=== PATIENT | female | born 1950 | race Hispanic/Latino ===

== ENCOUNTER 2020-09-03 01:14 | Emergency (ER) | payer MEDICARE ==
--- NOTE | 2020-09-03 01:27 | Emergency Department Report ---
ED Fall HPI - General Stated Complaint: SLIP AND FALL RT ARM PAIN Time Seen by Provider: 09/03/20 01:14 Source: patient, EMS Mode of arrival: Stretcher Limitations: Physical Limitation - History of Present Illness Initial Comments: Patient is a 70-year-old female that presents emergency room with complaints of right upper extremity pain after a fall. Patient states she was at [employer] when she slipped. Patient states that the pain is a 10 out of 10. Patient denies loss of consciousness. Patient denies hitting her head. Patient states the pain is better with rest and worse with movement. Patient was brought in by EMS. EMS placed the patient in a right upper extremity sling. Patient denies any other complaint except for nausea. Patient denies chest pain. Patient denies shortness of breath. Patient denies any other injury. Patient denies recent travel. Patient denies recent international travel. Patient denies exposure to the novel coronavirus. Patient denies sick contacts. Patient denies fever and chills. Patient denies cough. Patient denies diarrhea. Patient denies coming in contact with anybody with symptoms of the novel coronavirus. Complaint: fall -: Sudden Fall From: standing When Fall Occurred: [address] Fall Occurred: other Loss of Consciousness: none Prolonged Down Time?: no Symptoms Prior to Fall: none Location: other Location - Extremities: Right: Shoulder, Arm, Elbow, Forearm, Hand Severity: severe Severity scale (0 -10): 10 Quality: sharp Context: tripped/slipped Associated Symptoms: denies: headache, neck pain, numbness, weakness, chest paint, shortness of breath, abdominal pain, hematuria, unable to walk, lightheaded, vertigo, confusion - Related Data Allergies Allergy/AdvReac Type Severity Reaction Status Date / Time ibuprofen [From Motrin] Allergy Unknown Verified 09/03/20 01:19 ED Review of Systems ROS: Stated complaint: SLIP AND FALL RT ARM PAIN Other details as noted in HPI Constitutional: denies: chills, fever Eyes: denies: eye pain, eye discharge, vision change ENT: denies: ear pain, throat pain Respiratory: denies: cough, shortness of breath, wheezing Cardiovascular: denies: chest pain, palpitations Endocrine: no symptoms reported Gastrointestinal: nausea. denies: abdominal pain, diarrhea Genitourinary: denies: urgency, dysuria, discharge Musculoskeletal: denies: back pain, joint swelling, arthralgia Skin: denies: rash, lesions Neurological: denies: headache, weakness, paresthesias Psychiatric: denies: anxiety, depression Hematological/Lymphatic: denies: easy bleeding, easy bruising ED Past Medical Hx - Past Medical History Previous Medical History?: Yes Hx Hypertension: Yes - Surgical History Past Surgical History?: No - Family History Family history: no significant - Social History Smoking Status: Never Smoker Substance Use Type: None ED Physical Exam - General Limitations: No Limitations General appearance: alert, in no apparent distress - Head Head exam: Present: atraumatic, normocephalic - Eye Eye exam: Present: normal appearance - ENT ENT exam: Present: mucous membranes moist - Neck Neck exam: Present: normal inspection - Respiratory Respiratory exam: Present: normal lung sounds bilaterally. Absent: respiratory distress - Cardiovascular Cardiovascular Exam: Present: regular rate, normal rhythm. Absent: systolic murmur, diastolic murmur, rubs, gallop - GI/Abdominal GI/Abdominal exam: Present: soft, normal bowel sounds - Extremities Exam Extremities exam: Present: normal inspection, tenderness (Right upper extremity) - Back Exam Back exam: Present: normal inspection - Neurological Exam Neurological exam: Present: alert, oriented X3 - Psychiatric Psychiatric exam: Present: normal affect, normal mood - Skin Skin exam: Present: warm, dry, intact, normal color. Absent: rash ED Course Vital Signs 09/03/20 09/03/20 09/03/20 01:19 04:15 05:38 Temperature 97.3 F L Pulse Rate 87 81 77 Respiratory 16 16 16 Rate Blood Pressure 198/103 187/99 179/80 [Left] O2 Sat by Pulse 98 96 96 Oximetry - Reevaluation(s) Reevaluation #1: Patient states her nausea is better. Patient states now she is just in so extreme pain. Patient will be given a milligram Dilaudid. Patient has an IV in the left AC from EMS. 09/03/20 02:04 Reevaluation #2: I discussed all results and clinical findings with patient. I discussed plan of care with patient. Patient agrees with plan of care and transfer. Patient is stable for transfer. 09/03/20 04:57 - Consultations Consultation #1: I discussed case with trauma at [facility]. Dr. Leija has accepted the patient to be transferred ER to ER. 09/03/20 05:58 ED Medical Decision Making - Radiology Data Radiology results: image reviewed interpreted by me: Right shoulder: Comminuted humeral fracture noted. Head appears to be displaced. RIGHT HAND 2 VIEWS INDICATION / CLINICAL INFORMATION: Fall with right hand pain. COMPARISON: None available. FINDINGS: BONES / JOINT(S): There are advanced degenerative changes involving the first carpometacarpal joint. There are also advanced degenerative changes involving the second and third DIP joints. Mild degenerative changes are noted involving the remainder of the hand. There is no evidence of fracture or dislocation. SOFT TISSUES: No significant abnormality. ADDITIONAL FINDINGS: None. RIGHT SHOULDER 2 VIEWS INDICATION / CLINICAL INFORMATION: Fall with right shoulder pain. COMPARISON: None available. FINDINGS: BONES / JOINT(S): There is an acute, comminuted fracture of the right humeral head and neck. There is a questionable fracture of the distal right clavicle. No associated dislocation. SOFT TISSUES: A bandage obscures detail. ADDITIONAL FINDINGS: None. RIGHT WRIST 3 VIEWS INDICATION / CLINICAL INFORMATION: Fall with right wrist pain. COMPARISON: None available. FINDINGS: BONES / JOINT(S): There are advanced degenerative changes involving the first carpometacarpal joint. There is no evidence of acute fracture or subluxation. SOFT TISSUES: No significant abnormality. ADDITIONAL FINDINGS: None. - Medical Decision Making Patient is a 70-year-old female that presents emergency room with a slip and fall at [facility] [address] with complaints of right shoulder pain and right arm pain. Patient had x-rays of the right upper extremity. Patient's shoulder x-ray was positive for comminuted fracture which appears to be displaced. Due to the patient's level of pain and the type of fracture, the patient will require an orthopedic, trauma consult. This hospital does not have orthopedics at this time. Patient transferred to [facility]. Patient has been accepted by the trauma attending for ER to ER transfer. Patient stable for transfer. Patient given Dilaudid for pain. Patient responded well to treatment. Patient is stable for transfer. Patient will be transferred via EMS to [facility] ER. - Differential Diagnosis Fall, shoulder pain, right arm pain, strain, sprain, fracture, contusion Critical Care Time: Yes Critical care time in (mins) excluding proc time.: 35 Critical care attestation.: If time is entered above; I have spent that time in minutes in the direct care of this critically ill patient, excluding procedure time. Critical Care Time: 35 minutes ED Disposition Clinical Impression: Right upper limb pain Right clavicle fracture Qualifiers: Encounter type: initial encounter Clavicle location: unspecified part of clavicle Fracture type: closed Fracture alignment: nondisplaced Qualified Code(s): S42.001A - Fracture of unspecified part of right clavicle, initial encounter for closed fracture Shoulder pain Qualifiers: Chronicity: acute Laterality: right Qualified Code(s): M25.511 - Pain in right shoulder Fall Qualifiers: Encounter type: initial encounter Qualified Code(s): W19.XXXA - Unspecified fall, initial encounter Humeral head fracture Qualifiers: Encounter type: initial encounter Fracture type: closed Laterality: right Qualified Code(s): S42.291A - Other displaced fracture of upper end of right humerus, initial encounter for closed fracture Hypertension Qualifiers: Hypertension type: essential hypertension Qualified Code(s): I10 - Essential (primary) hypertension Disposition: DC/TX-70 ANOTHER TYPE HLTHCARE Is pt being admited?: No Does the pt Need Aspirin: No Condition: Critical Instructions: Hypertension (ED) Time of Disposition: 05:43
[2020-09-03] MEDS ORDERED: ONDANSETRON 4 MG ODT TAB PO ONE (01:29)
[2020-09-03] MEDS ORDERED: HYDROmorphone 1 MG/1 ML INJ IV ONE ×2 (02:03→06:14)
--- NOTE | 2020-09-03 03:00 | XRay Report ---
RIGHT SHOULDER 2 VIEWS INDICATION / CLINICAL INFORMATION: Fall with right shoulder pain. COMPARISON: None available. FINDINGS: BONES / JOINT(S): There is an acute, comminuted fracture of the right humeral head and neck. There is a questionable fracture of the distal right clavicle. No associated dislocation. SOFT TISSUES: A bandage obscures detail. ADDITIONAL FINDINGS: None. Signer Name: Johnnie Newton MD Signed: 09/03/2020 2:55 AM Workstation Name: [id number]
--- NOTE | 2020-09-03 03:01 | XRay Report ---
RIGHT WRIST 3 VIEWS INDICATION / CLINICAL INFORMATION: Fall with right wrist pain. COMPARISON: None available. FINDINGS: BONES / JOINT(S): There are advanced degenerative changes involving the first carpometacarpal joint. There is no evidence of acute fracture or subluxation. SOFT TISSUES: No significant abnormality. ADDITIONAL FINDINGS: None. Signer Name: Johnnie Newton MD Signed: 09/03/2020 2:56 AM Workstation Name: [email or web address]
--- NOTE | 2020-09-03 03:02 | XRay Report ---
RIGHT HAND 2 VIEWS INDICATION / CLINICAL INFORMATION: Fall with right hand pain. COMPARISON: None available. FINDINGS: BONES / JOINT(S): There are advanced degenerative changes involving the first carpometacarpal joint. There are also advanced degenerative changes involving the second and third DIP joints. Mild degenera tive changes are noted involving the remainder of the hand. There is no evidence of fracture or dislo cation. SOFT TISSUES: No significant abnormality. ADDITIONAL FINDINGS: None. Signer Name: Johnnie Newton MD Signed: 09/03/2020 2:57 AM Workstation Name: [email or web address]
--- NOTE | 2020-09-03 04:02 | XRay Report ---
RIGHT ELBOW 3 VIEWS INDICATION / CLINICAL INFORMATION: Fall with right elbow pain. COMPARISON: None available. FINDINGS: BONES / JOINT(S): The joint spaces are well-maintained. There is no evidence of fracture, subluxation or joint effusion. SOFT TISSUES: No significant abnormality. ADDITIONAL FINDINGS: None. Signer Name: Johnnie Newton MD Signed: 09/03/2020 3:58 AM Workstation Name: [email or web address]
[2020-09-03 05:39] VITALS: BP 179/80
== END 2020-09-03 07:43 | disposition other institution (70) ==
LOC: ED 01:14
DX: S42.031A Displaced fracture of lateral end of right clavicle, initial encounter for closed fracture (principal); S42.291A Other displaced fracture of upper end of right humerus, initial encounter for closed fracture; I10 Essential (primary) hypertension; M79.601 Pain in right arm; M25.511 Pain in right shoulder; Z88.6 Allergy status to analgesic agent; W01.0XXA Fall on same level from slipping, tripping and stumbling without subsequent striking against object, initial encounter; Y93.89 Activity, other specified; Y92.89 Other specified places as the place of occurrence of the external cause; Y99.8 Other external cause status
CPT/HCPCS: 73030; 73080; 73110; 73120; 96374; 96376; 99285; J1170; Q0162